=== PATIENT | male | born 1990 | race African-American/Black ===

== ENCOUNTER 2019-01-17 12:22 | Emergency (ER) | payer SELFPAY ==
[2019-01-17 12:27] VITALS: BP 123/76; PULSE 90; TEMP 98.4; BMI 27.8
--- NOTE | 2019-01-17 12:27 | PDOC ---
Rapid Medical Evaluation Time Seen by Provider: 01/17/19 12:25 Medical Evaluation: 01/17/19 12:25 CC: flu like symptoms x1 day PE: OP minimal erythema present. Lungs CTAB. Orders: nothing The patient will proceed to the ER for continued Evaluation. Discharge Disposition - Diagnosis URI (upper respiratory infection) - Referrals - Patient Instructions - Post Discharge Activity
[2019-01-17] MEDS ORDERED: ACETAMINOPHEN 500 MG TABLET (FP) PO ONE (13:24)
--- NOTE | 2019-01-17 13:25 | PDOC ---
History of Present Illness - General Chief Complaint: Cold Symptoms Stated Complaint: WEAKNESS/COLD SYMPTOMS Time Seen by Provider: 01/17/19 12:25 - History of Present Illness Initial Comments: 01/17/19 13:24 28-year-old male without comorbidities presents for evaluation of runny nose and body aches x1 day Past History - Past Medical History Allergies/Adverse Reactions: Allergies Allergy/AdvReac Type Severity Reaction Status Date / Time No Known Allergies Allergy Verified 01/17/19 12:27 COPD: No - Psycho Social/Smoking Cessation Hx Smoking History: Current every day smoker Number of Cigarettes Smoked Daily: 10 Information on smoking cessation initiated: No Review of Systems - Review of Systems Constitutional: No: Fever HEENTM: Yes: Nose Congestion *Physical Exam - Vital Signs Last Vital Signs Temp Pulse Resp BP Pulse Ox 98.4 F 90 18 123/76 98 01/17/19 12:24 01/17/19 12:24 01/17/19 12:24 01/17/19 12:24 01/17/19 12:24 - Physical Exam Comments: 01/17/19 13:24 GENERAL: The patient is awake, alert, and fully oriented, in no acute distress. HEAD: Normal with no signs of trauma. EYES: sclera anicteric, conjunctiva clear. ENT: Ears normal NECK: Normal range of motion LUNGS: Breath sounds equal, clear to auscultation bilaterally. No wheezes, and no crackles. HEART: S1 and S2 without murmur, rub or gallop. ABDOMEN: Soft, nontender, normoactive bowel sounds. No guarding, no rebound. No masses. EXTREMITIES: Normal range of motion, no edema. No clubbing or cyanosis. No cords, erythema, or tenderness. NEUROLOGICAL: Cranial nerves II through XII grossly intact. Normal speech, normal gait. PSYCH: Normal mood, normal affect. SKIN: Warm, Dry, normal turgor, no rashes or lesions noted. Medical Decision Making - Medical Decision Making 01/17/19 13:25 Afebrile influenza negative we will have patient follow-up with PCP Discharge - Discharge Information Problems reviewed: Yes Clinical Impression/Diagnosis: URI (upper respiratory infection) Condition: Stable Disposition: HOME - Admission No - Follow up/Referral Referrals: [facility] [Non Staff, Medical] - - Patient Discharge Instructions Additional Instructions: Return to the emergency room for worsening symptoms. Your flu swab today was negative. Tylenol Motrin for any discomfort and body aches. Follow-up with your primary care physician in 1 to 2 days for further evaluation and treatment options. - Post Discharge Activity
[2019-01-17] MEDS ORDERED: ACETAMINOPHEN 500 MG TABLET (FP) ONE (14:06)
== END 2019-01-17 14:12 | disposition home or self-care (01) ==
LOC: JERFT 12:22
DX: J06.9 Acute upper respiratory infection, unspecified (principal); F17.210 Nicotine dependence, cigarettes, uncomplicated
CPT/HCPCS: 87804; 99281-25

== ENCOUNTER 2019-09-23 16:04 | Emergency (ER) | payer OTHER ==
[2019-09-23 16:17] VITALS: BP 127/79; PULSE 90; TEMP 97.8; BMI 29.2
--- NOTE | 2019-09-23 16:39 | PDOC ---
History of Present Illness - General Chief Complaint: Rash Stated Complaint: RASH Time Seen by Provider: 09/23/19 16:21 History Source: Patient Exam Limitations: No Limitations - History of Present Illness Initial Comments: 09/23/19 16:32 Patient is a 29-year-old male with no past medical history who presents to the ED with a scattered rash that he has had on his body for the last 1 week. He states the rash was itchy has been getting less itchy. He does admit that his girlfriend's daughter had the same rash recently. He denies any fevers or chills. He denies any drainage from the rash. The patient has not taken anything for his symptoms. Past History - Medical History Allergies/Adverse Reactions: Allergies Allergy/AdvReac Type Severity Reaction Status Date / Time No Known Allergies Allergy Verified 09/23/19 16:12 Home Medications: Ambulatory Orders Ketoconazole 2% Cream [Nizoral 2% Cream -] 1 applic TP DAILY 14 Days #1 tube 09/23/19 COPD: No - Psycho-Social/Smoking History Smoking History: Never smoked Number of Cigarettes Smoked Daily: 10 Information on smoking cessation initiated: No - Substance Abuse Hx (Audit-C & DAST Scrn) How often the patient has a drink containing alcohol: Never Score: In Men: 4 or > Positive; In Women: 3 or > Positive: 0 Screen Result (Pos requires Nsg. Audit-10AR): Negative In the last yr the pt used illegal drug/Rx for NonMed reason: No Score: Yes response is considered Positive: 0 Screen Result (Positive result requires Nsg. DAST-10): Negative Review of Systems - Review of Systems Comments:: 09/23/19 16:33 - Review of Systems Able to Perform ROS?: Yes Constitutional: No: Fever, Chills, Loss of Appetite, Night Sweats, Weakness HEENTM: No: Eye Pain, Vision changes, Ear Pain, Throat Pain, Throat Swelling, Mouth Pain, Difficulty Swallowing Respiratory: No: Cough, Shortness of Breath, Wheezing, Sputum Production Cardiac (ROS): No: Chest Pain, Chest Tightness, Palpitations, Irregular Heart Beat, Edema ABD/GI: No: Nausea, Vomiting, Abdominal Pain, Diarrhea : No Dysuria, No Hematuria, No Frequency, No Urgency Musculoskeletal: No: Muscle Pain, Back Pain, Joint Pain, Muscle Weakness, Neck Pain Integumentary: No: Lesions, positive: Rash Neurological: No: Headache, Numbness, Tingling, Weakness, Speech Difficulties *Physical Exam - Vital Signs Last Vital Signs Temp Pulse Resp BP Pulse Ox 97.8 F 90 16 127/79 98 09/23/19 16:12 09/23/19 16:12 09/23/19 16:12 09/23/19 16:12 09/23/19 16:12 - Physical Exam 09/23/19 16:33 - Physical Exam General Appearance: Nourished, Appropriately Dressed, No Distress HEENT: EOMI, Normal Voice, Hearing Grossly Normal Neck: Supple, No Lymphadenopathy (R), No Lymphadenopathy (L), No Rigidity, No Decreased range of motion Respiratory/Chest: Lungs Clear, Normal Breath Sounds. No Respiratory Distress, No Accessory Muscle Use Cardiovascular: Regular Rhythm, Regular Rate, S1, S2 Gastrointestinal/Abdominal: Normal Bowel Sounds, Soft. Non-tender, No Guarding, No Rebound, No Rigidity Musculoskeletal: Normal Inspection. No Decreased Range of Motion Extremity: Normal Capillary Refill, Normal Inspection Integumentary: Normal Color, Dry. There is scattered dry scaly rash with prominent borders consistent with fungal infection. The patient has a lesion on his left medial calf, left hand, right forearm, right flank, right neck and left forehead. All the lesions appear similar. There is no drainage. There is no vesicles. There is no tenderness to palpation. There is no surrounding cellulitis. Neurologic: jail guard II-XII NML intact, Fully Oriented, Alert, Normal Mood/Affect, Normal Response Medical Decision Making - Medical Decision Making 09/23/19 16:35 Assessment: Patient is a 29-year-old male with fungal rash scattered on his body. Plan: The patient has been made aware that his rash appears to be fungal. We will send a fungal cream to his pharmacy. He has been made aware that he may require oral medication which can be determined by his primary doctor. The patient has been made aware that he should follow-up with a primary doctor, referral given, for further evaluation and treatment. He understands and agrees with this treatment plan and he is stable for discharge. Discharge - Discharge Information Problems reviewed: Yes Clinical Impression/Diagnosis: Tinea corporis Condition: Stable Disposition: HOME - Additional Discharge Information Prescriptions: Ketoconazole 2% Cream [Nizoral 2% Cream -] 1 applic TP DAILY 14 Days #1 tube - Follow up/Referral Referrals: [facility] [place] [Provider Group] - 3 days - Patient Discharge Instructions Patient Printed Discharge Instructions: DI for Tinea Corporis Additional Instructions: Use the cream as prescribed. Be sure to follow-up with primary care, as referred, within the next week for repeat evaluation. If you are unable to see the primary care that you have been referred you can also go to an urgent care center for follow-up. Take care and knowing that this rash is contagious. - Post Discharge Activity Work/Back to School Note: Back to Work
== END 2019-09-23 17:00 | disposition home or self-care (01) ==
LOC: JERFT 16:04 → JER 16:04 → JERFT 17:00
DX: B35.4 Tinea corporis (principal)
CPT/HCPCS: 99282-25